=== PATIENT | male | born 1950 | race Caucasian/White ===

== ENCOUNTER → 2020-12-30 | Outpatient (CLI) | payer OTHER, MEDICARE ==
[~2020-12-30] MED LIST: ACETAMINOPHEN325 M1 PO; ATORVASTATIN CA10 MG PO; CELEBREX 200 M200 MG PO; CLONAZEPAM 1 MG1 M1 PO; COLACE100 MG PO; FISH OIL 1,0001 EAC5 PO; LEXAPRO PO; LEXAPRO20 MG PO; LUTEIN6 MG PO; MULTIVITAMINS PO; NEURONTIN 300300 M1 PO; PRILOSEC 20 MG20 MG PO; PROBIOTIC1 EAC1 PO; VITAMIN B-50 C0.4 MG PO; VITAMIN E400 UNIT PO; ZOCOR 20 MG TAB20 M1 PO
== END ==
LOC: SJCVC 13:31
PROVIDERS: ATTEND Internal Medicine Cardiovascular Disease
DX: R94.31 Abnormal electrocardiogram [ECG] [EKG] (principal); I25.10 Atherosclerotic heart disease of native coronary artery without angina pectoris; I10 Essential (primary) hypertension; E78.00 Pure hypercholesterolemia, unspecified; R00.1 Bradycardia, unspecified; K21.9 Gastro-esophageal reflux disease without esophagitis; E03.9 Hypothyroidism, unspecified; F41.8 Other specified anxiety disorders; Z88.0 Allergy status to penicillin; Z79.82 Long term (current) use of aspirin; Z79.899 Other long term (current) drug therapy; Z72.89 Other problems related to lifestyle; Z95.818 Presence of other cardiac implants and grafts

== ENCOUNTER → 2021-01-20 | Outpatient (CLI) | payer OTHER, MEDICARE | LOC: SJCVCIMAG 09:05 | PROVIDERS: ATTEND Internal Medicine Cardiovascular Disease | DX: R00.1 Bradycardia, unspecified (principal); I34.0 Nonrheumatic mitral (valve) insufficiency; I11.9 Hypertensive heart disease without heart failure; I25.10 Atherosclerotic heart disease of native coronary artery without angina pectoris; E78.00 Pure hypercholesterolemia, unspecified; F41.9 Anxiety disorder, unspecified; N40.0 Benign prostatic hyperplasia without lower urinary tract symptoms; I65.29 Occlusion and stenosis of unspecified carotid artery; M50.30 Other cervical disc degeneration, unspecified cervical region; H35.363 Drusen (degenerative) of macula, bilateral; K21.9 Gastro-esophageal reflux disease without esophagitis; M21.379 Foot drop, unspecified foot; E03.9 Hypothyroidism, unspecified; K27.9 Peptic ulcer, site unspecified, unspecified as acute or chronic, without hemorrhage or perforation; Z79.82 Long term (current) use of aspirin; Z79.899 Other long term (current) drug therapy; Z82.49 Family history of ischemic heart disease and other diseases of the circulatory system; Z88.8 Allergy status to other drugs, medicaments and biological substances ==